=== PATIENT | female | born 1955 | race American Indian/Alaskan Native ===

== ENCOUNTER 2016-02-27 20:24 | Emergency (ER) | payer MEDICARE ==
[2016-02-27 20:51] LABS: Basophils % (Auto) 0.5 % (0.0-1.8); Eosinophils % (Auto) 1.3 % (0.0-4.3); Hematocrit 40.4 % (30.3-42.9); Hemoglobin 13.3 gm/dl (10.1-14.3); Mean Corpuscular HGB Conc 33 % (30-34); Mean Corpuscular Hemoglobin 28 pg (28-32); Mean Corpuscular Volume 85 fl (79-97); Platelet Count 218 K/mm3 (140-440); Red Blood Count 4.73 M/mm3 (3.65-5.03); Red Cell Distribution Width 15.6 % (13.2-15.2); White Blood Count 7.5 K/mm3 (4.5-11.0)
[2016-02-27 21:02] LABS: INR 1.03 (0.87-1.13)
[2016-02-27 21:03] LABS: Partial Thromboplastin Time 33.3 Sec. (24.2-36.6)
[2016-02-27 21:04] LABS: BUN/Creatinine Ratio 13.33; Blood Urea Nitrogen 12 mg/dL (7-17); Calcium 8.8 mg/dL (8.4-10.2); Carbon Dioxide 21 mmol/L (22-30); Chloride 97.2 mmol/L (98-107); Glucose 105 mg/dL (65-100); Potassium 3.1 mmol/L (3.6-5.0); Sodium 137 mmol/L (137-145)
--- NOTE | 2016-02-27 21:04 | Cat Scan Report ---
FINAL REPORT EXAM: CT HEAD/BRAIN WO CON HISTORY: neuro deficits < 6hrs or sx present upon awakening COMPARISON: None available. TECHNIQUE: Axial images obtained skull base through vertex. FINDINGS: No acute intracranial hemorrhage, midline shift or pathologic extra axial fluid collection. Slight increased attenuation of the left MCA compared to the right which may be positional (series 2, image 23). No loss of the subinsular cortex. Small foci of low attenuation within the left basal ganglia likely related to sequelae of chronic small vessel ischemic disease. Ventricles and cisterns are normal in size and configuration for the patient's age. Isidro-white differentiation preserved. Calvarium grossly intact. Mild mucosal thickening the ethmoid air cells. Mastoid air cells are clear. Visualized orbits are grossly unremarkable. IMPRESSION: Slight increased attenuation of the left MCA compared to the right. Left MCA may be slightly more accentuated due to patient head positioning. No acute parenchymal changes identified by CT. If clinical concern for acute intracranial process remains, MRI would be suggested for further evaluation. Small foci of low attenuation with the left basal ganglia likely relating to sequelae of chronic small vessel ischemic disease. Findings discussed with Dr Cohn on February 27, 2016 at 2102 hours EST.
[2016-02-27] MEDS ORDERED: NACL 0.9% IV ONE (21:13)
[2016-02-27] MEDS ORDERED: ACTIVASE IV ONE ×2 (21:13)
[2016-02-27 21:14] LABS: Anion Gap 22 mmol/L
--- NOTE | 2016-02-27 21:35 | Emergency Department Report ---
HPI - General Chief Complaint: Altered Mental Status Time Seen by Provider: 02/27/16 20:59 - HPI HPI: The patient is a 60-year-old female who presents for evaluation of change in speech and confusion. Per the patient's accompanying friends who were at home with the patient watching the [employer] [facility] [employer] game, approximately 45 minutes prior to arrival, the patient experienced an episode of vomiting, and subsequently exhibited slurring of speech and confusion. They state that the changes speech has been constant since onset, and was severe, but has improved since onset. The patient states that she consumed moonshine earlier today, and that her slurred speech began around half-time of the [employer] game, approximately 5 hours ago. The patient denies fever, head injury, headache, neck pain, neck stiffness, vision or hearing changes, smell or taste changes, paresthesias, facial drooping, seizure-like activity, urine or bowel incontinence or retention, or other focal neurological deficit. ED Past Medical Hx - Past Medical History Hx Hypertension: Yes (not on meds, under control) Hx Arthritis: Yes Hx Seizures: Yes Hx Asthma: Yes Additional medical history: fibrocystic breast - Surgical History Additional Surgical History: carpal tunnel left wrist, surg on right leg due to fx, surg on left foot due to fx, benign cysts removed from breasts. - Social History Smoking Status: Never Smoker Substance Use Type: None - Medications Home Medications: Home Medications Medication Instructions Recorded Confirmed Last Taken Type traMADol [Ultram] 50 mg PO Q4HR PRN #20 tablet 02/23/13 Unknown Rx ED Review of Systems ROS: Stated complaint: POSS SEIZURE Other details as noted in HPI Constitutional: denies: fever ENT: denies: throat or neck pain Respiratory: denies: cough, shortness of breath Cardiovascular: denies: chest pain Endocrine: denies unexplained weight loss or gain Gastrointestinal: denies: abdominal pain, nausea Genitourinary: denies: dysuria Musculoskeletal: denies: leg swelling Skin: denies: rash Neurological: reports slurred speech and confusion denies: headache Hematological/Lymphatic: denies: easy bleeding or easy bruising Psych: denies sadness or hopelessness Physical Exam - Physical Exam Vital Signs: Vital Signs 02/27/16 20:27 Temperature 97.7 F Pulse Rate 98 H Blood Pressure 124/79 O2 Sat by Pulse 97 Oximetry Physical Exam: General: well-nourished, well-developed, no acute distress Head: Normocephalic, atraumatic Eyes: normal sclera, EOMI, PERRLA ENT: Mucous membranes are pink and moist Neck: trachea midline, neck supple, No neck stiffness, no cervical adenopathy Respiratory: Breath sounds equal bilaterally, no wheezing, rales, or rhonchi Cardio: S1 and S2 present, no murmurs, rubs, gallops, capillary refill is brisk Abdomen: Normoactive bowel sounds, soft abdomen, no rigidity, no guarding or rebound tenderness Musc: No pitting edema Skin: No rash Neuro: alert oriented x2, no facial drooping, slurred speech, and mild to moderate aphasia present,, no pronator drift, no sensation or motor deficit in the arms or legs, no condition deficit with intact nose testing, reflexes 2+ symmetric on DTR testing, patient unable to ambulate without abnormal gait NIH SS is 3-4 Psych: Normal affect ED Course Vital Signs 02/27/16 20:27 Temperature 97.7 F Pulse Rate 98 H Blood Pressure 124/79 O2 Sat by Pulse 97 Oximetry - Reevaluation(s) Reevaluation #1: 02/27/16 21:15 The patient's in IHS score is a 3, 2 points for severe aphasia and 1 point for dysarthria. The neurologist Dr. Diaz returned page. He agreed to assess the patient with teleneurology robot. Reevaluation #2: 02/27/16 21:25 The Teleneurologist accessed the patient and submits that his exam is suggestive of intoxication. He recommends waiting on ETOH prior to administering TPA. 02/27/16 21:58 ED Medical Decision Making - Lab Data Result diagrams: 02/27/16 20:44 02/27/16 20:44 - Medical Decision Making The patient was seen and examined by myself. The patient is placed on a semaphore operator and continuous pulse ox. On initial evaluation, the patient was found to be in no distress, and with examination findings suggestive of acute intoxication versus mild stroke. Evaluation orders were placed. CAT scan of the head is read by radiologist as potential increased attenuation in the MCA region, although potentially secondary to head position. The teleneurologist evaluated the patient. He submitted that findings are more suggestive of alcohol intoxication over acute CVA. He states that overall evaluation findings are consistent with acute intoxication, and he submits that findings are unlikely to be of CVA etiology. Lab results reveal significantly elevated EtOH level of 0.25, and otherwise labs are not concerning. CT angiogram of the head is negative for findings suggestive of acute ischemic infarct. The patient is monitored in the emergency department for greater than 4 hours. She is reevaluated and found to have resolution of dysarthria and dysphagia. Additionally she has no further ataxia whatsoever. The patient states that her symptoms are resolved and she feels back to her normal baseline. She is given a tablet of Plavix. The patient is stable for discharge with outpatient follow- up. The patient is given follow-up and return instructions. The patient expressed understanding and agreed with the plan. The patient is discharged in stable condition. Critical care attestation.: If time is entered above; I have spent that time in minutes in the direct care of this critically ill patient, excluding procedure time. ED Disposition Clinical Impression: Dehydration, Slurred speech Alcohol intoxication Qualifiers: Complication of substance-induced condition: with delirium Qualified Code(s): F10.121 - Alcohol abuse with intoxication delirium Altered mental status Qualifiers: Altered mental status type: disorientation Qualified Code(s): R41.0 - Disorientation, unspecified Disposition: DISCHARGED TO HOME OR SELFCARE Is pt being admited?: No Does the pt Need Aspirin: No Condition: Stable Instructions: Dehydration (ED), Alcohol Intoxication (ED) Referrals: PRIMARY CARE, [Primary Care Provider] - 3-5 Days Time of Disposition: 22:03
[2016-02-27 21:48] LABS: Urine Drugs of Abuse Note Disclamer
[2016-02-27 21:57] LABS: Bacteria,Urine 1+ /HPF (Negative); Bilirubin,Urine NEG (Negative); Blood,Urine NEG (Negative); Ketones,Urine NEG (Negative); Leukocyte Esterase,Urine NEG (Negative); Nitrite,Urine NEG (Negative); Protein,Urine <15 mg/dL mg/dL (Negative); RBC,Urine < 1.0 /HPF (0.0-6.0); Urobilinogen,Urine < 2.0 mg/dL (<2.0)
[2016-02-27] MEDS ORDERED: NACL ONE ×2 (22:16→23:36)
[2016-02-27] MEDS ORDERED: NACL 0.9% 1000 ML 1,000 ML IV ONE (23:45)
--- NOTE | 2016-02-28 00:36 | Cat Scan Report ---
FINAL REPORT EXAM: CT ANGIO HEAD HISTORY: dysarthria and dysphagia subarachnoid hemorrhage. COMPARISON: CT of the head from the same date. TECHNIQUE: Contiguous axial images were obtained. Additional sagittal and coronal reformatted images were obtained. Administration of IV contrast given per institution protocol. Images submitted for interpretation. Max intensity projection images. 100 cc Omnipaque 350. FINDINGS: Petrous, cavernous, supraclinoid portions of the internal carotid arteries are patent. A1 segments are grossly symmetric in caliber. Diffuse decrease caliber of the vertebral basilar system. There is dominance of the anterior circulation. Right-sided trigeminal artery.. Single bilateral superior cerebellar arteries. Tortuous course of the intracranial carotid arteries. No aneurysm identified along the vertebral arteries or basilar artery. Symmetric opacification of branching of the anterior, middle, and posterior cerebral arteries. No early draining vein or area of abnormal hypervascular enhancement. IMPRESSION: Major intracranial arterial vessels are patent. No high-grade stenosis or occlusion. 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 Subsequently, is decreased diffuse caliber of the vertebral arteries and basilar artery.
[2016-02-28] MEDS ORDERED: PLAVIX PO ONE (00:46)
--- NOTE | 2016-02-28 00:58 | Cat Scan Report ---
FINAL REPORT EXAM: CT ANGIO NECK HISTORY: dysarthria and dysphagia COMPARISON: None available. TECHNIQUE: Contiguous axial images were obtained. Additional sagittal and coronal reformatted images were obtained. 100 cc Omnipaque 350. Max intensity projection images. FINDINGS: Extracranial portions of the common carotid, internal carotid, vertebral arteries are widely patent. Left vertebral artery is slightly dominant. Carotid bifurcations are widely patent. No luminal regularity or intimal flap. Origins of the bilateral common carotid, internal carotid, vertebral arteries are patent as well as the origin of the innominate artery. Spaces of the neck are preserved. Airway is patent. True vocal cords are symmetric. Moderate degenerative changes of the cervical spine. IMPRESSION: Extracranial portions of the common carotid, internal carotid, vertebral arteries are widely patent. No luminal regularity or stenosis.
[2016-02-28 01:36] VITALS: BP 110/70
== END 2016-02-28 01:50 | disposition home or self-care (01) ==
LOC: ED 20:24
DX: F10.121 Alcohol abuse with intoxication delirium (principal); E86.0 Dehydration; R47.81 Slurred speech; R41.82 Altered mental status, unspecified; I10 Essential (primary) hypertension; J45.909 Unspecified asthma, uncomplicated
CPT/HCPCS: 36415; 70450; 70496; 70498; 80048; 80307; 81001; 82962; 84484; 85025; 85610; 85670; 85730; 93005; 93010; 99285; G0480; Q9967; 80320; J2997

== ENCOUNTER 2016-05-11 11:04 | Outpatient (CLI) | payer MEDICARE ==
--- NOTE | 2016-05-11 13:12 | Mammography Report ---
Bilateral digital screening mammogram with CAD. No prior studies are available. Findings: There is heterogeneous density of the fibroglandular tissue. Dense coarse calcifications in the left breast at the 8:30 position have benign features. No suspicious microcalcifications, masses, or distortion. Impression: No suspicious findings. BI-RADS code: 2. Recommendation: Annual screening.
== END 2016-05-11 11:05 | disposition home or self-care (01) ==
LOC: MAMMO 11:04
PROVIDERS: ATTEND Internal Medicine
DX: Z12.31 Encounter for screening mammogram for malignant neoplasm of breast (principal)
CPT/HCPCS: 77067; G0202

== ENCOUNTER 2016-06-11 20:12 | Emergency (ER) | payer MEDICARE ==
[2016-06-11] MEDS ORDERED: PERCOCET 5/325 PO ONE (23:31)
--- NOTE | 2016-06-11 23:32 | Emergency Department Report ---
HPI - General Chief Complaint: Extremity Injury, Lower Time Seen by Provider: 06/11/16 23:07 - HPI HPI: This is a 60-year-old -[place] female presents to the emergency department, dropped off by a friend, with complaint of pain from the right ankle to the inferior portion of the right knee after she twisted her leg this morning. She says that she had a lot of pain at that time, then it went away, and then it came back even worse. She is able to ambulate when she "hobbles." She did not take anything for symptoms prior to presentation. Her primary care doctor is Dr. Nasim Hackett. ED Past Medical Hx - Past Medical History Hx Hypertension: Yes (not on meds, under control) Hx Arthritis: Yes Hx Seizures: Yes Hx Asthma: Yes Additional medical history: fibrocystic breast - Surgical History Additional Surgical History: carpal tunnel left wrist, surg on right leg due to fx, surg on left foot due to fx, benign cysts removed from breasts. - Social History Smoking Status: Current Some Day Smoker Substance Use Type: None - Medications Home Medications: Home Medications Medication Instructions Recorded Confirmed Last Taken Type traMADol [Ultram] 50 mg PO Q4HR PRN #20 tablet 02/23/13 Unknown Rx oxyCODONE /ACETAMINOPHEN [Percocet 1 tab PO Q6HR PRN #10 tablet 06/12/16 Unknown Rx 5/325] ED Review of Systems ROS: Stated complaint: R ANKLE PAIN Other details as noted in HPI Comment: All other systems reviewed and negative Constitutional: denies: chills, fever Eyes: denies: eye pain, eye discharge, vision change ENT: denies: ear pain, throat pain Respiratory: denies: cough, shortness of breath, wheezing Cardiovascular: denies: chest pain, palpitations Gastrointestinal: denies: abdominal pain, nausea, diarrhea Genitourinary: denies: urgency, dysuria, discharge Musculoskeletal: arthralgia. denies: back pain Skin: denies: rash, lesions Neurological: denies: headache, weakness, paresthesias Physical Exam - Physical Exam Vital Signs: Vital Signs 06/11/16 20:38 Temperature 98 F Pulse Rate 99 H Respiratory 18 Rate Blood Pressure 137/98 O2 Sat by Pulse 98 Oximetry Physical Exam: GENERAL: The patient is well-developed well-nourished. HEENT: Normocephalic. Atraumatic. Extraocular motions are intact. Patient has moist mucous membranes. Pupils equal reactive to light bilaterally. NECK: Supple. Trach is midline. CHEST/LUNGS: Clear to auscultation. There is no respiratory distress noted. HEART/CARDIOVASCULAR: Regular. There is no tachycardia. There is no gallop rub or murmur. ABDOMEN: Abdomen is soft, nontender. Patient has normal bowel sounds. There is no abdominal distention. SKIN: Skin is warm and dry. There is some mild nonpitting swelling to the right ankle. NEURO: The patient is awake, alert, and oriented. The patient is cooperative. The patient has no focal neurologic deficits. The patient has normal speech. MUSCULOSKELETAL: There is some tenderness to palpation to the circumferential right ankle and the majority of the looney/tibfib . Negative anterior and posterior drawer test of the right knee. There is no laxity with valgus or varus stress of the right knee. Pedal pulses +2 over 4 bilaterally. No acute deformities. ED Course Vital Signs 06/11/16 20:38 Temperature 98 F Pulse Rate 99 H Respiratory 18 Rate Blood Pressure 137/98 O2 Sat by Pulse 98 Oximetry ED Medical Decision Making - Radiology Data Radiology results: image reviewed interpreted by me: X-rays of the right foot and the right tib-fib did not show any obvious acute fracture or acute abnormalities. - Medical Decision Making 60-year-old female presents the emergency department with complaint of pain from the right ankle up towards the knee after she sprained her ankle and her leg earlier this morning. There is no significant signs of trauma other than some mild swelling around the ankle. X-rays were done of the foot and the tib- fib of the right leg that shows the ankle as well and there was no obvious fracture, dislocation or any other acute processes seen. The patient was given a pain pill with some relief of her discomfort. Despite the allergy listing oxycodone as an allergy, the patient only receives some itching with this medication. She was given a Percocet today at her request and she did fine with that without any itching, hives or any other signs of allergies. For this reason the patient was given some of this pain medication for home. She was also given crutches, splint and referrals for an orthopedist. She will return to the ER with any worsening of her symptoms or any acute distress. - Differential Diagnosis fracture, dislocation, contusion, sprain, strain Critical Care Time: No Critical care attestation.: If time is entered above; I have spent that time in minutes in the direct care of this critically ill patient, excluding procedure time. ED Disposition Clinical Impression: Right leg pain, Leg sprain Right ankle pain Qualifiers: Chronicity: acute Qualified Code(s): M25.571 - Pain in right ankle and joints of right foot Disposition: DISCHARGED TO HOME OR SELFCARE Is pt being admited?: No Condition: Stable Instructions: Arthralgia (ED) Additional Instructions: Please follow-up with your primary care doctor when possible. I've given you a referral for a local orthopedist, Dr. Camarillo, and follow-up regarding your right leg pain. Return to the emergency department with any worsening of your symptoms or any acute distress. You've been prescribed a medication that is sedating. Therefore this medication cannot be mixed with alcohol, or taken prior to driving, working, or being responsible for children. Prescriptions: oxyCODONE /ACETAMINOPHEN [Percocet 5/325] 1 tab PO Q6HR PRN #10 tablet PRN Reason: Pain Referrals: PRIMARY CAREMD [Primary Care Provider] - 3-5 Days ASIYA CAMARILLO MD [Staff Physician] - 3-5 Days Time of Disposition: 01:02
--- NOTE | 2016-06-12 15:10 | XRay Report ---
RIGHT TIBIA/FIBULA: History: Injury AP and lateral views of the right tibia/fibula demonstrate normal mineralization and contours for this patient's age. No destructive changes are noted. There is moderate distal soft tissue swelling. IMPRESSION: Unremarkable right tibia/fibula. Soft tissue swelling.
--- NOTE | 2016-06-12 15:26 | XRay Report ---
RIGHT FOOT RADIOGRAPHS INDICATION: Injury. COMPARISON: None similar. FINDINGS: AP, lateral and oblique right foot radiographs demonstrate bony demineralization. Slight hallux valgus. Old healed deformities of third through fifth metatarsals noted, including bony bridging between shafts of the third and fourth. Mild diffuse soft tissue swelling about the ankle not excluded. CONCLUSION: Soft tissue swelling about the right ankle possible without acute foot bony abnormality with demineralization and few old deformities noted, as described. Please correlate. Thank you for the opportunity to participate in this patient's care.
== END 2016-06-12 01:59 | disposition home or self-care (01) ==
LOC: ED 20:12
DX: S93.401A Sprain of unspecified ligament of right ankle, initial encounter (principal); I10 Essential (primary) hypertension; M19.90 Unspecified osteoarthritis, unspecified site; J45.909 Unspecified asthma, uncomplicated; Z72.0 Tobacco use; X58.XXXA Exposure to other specified factors, initial encounter; Y93.89 Activity, other specified; Y99.9 Unspecified external cause status; Y92.89 Other specified places as the place of occurrence of the external cause